=== PATIENT | female | born 1955 | race Caucasian/White ===

== ENCOUNTER 2017-09-21 13:20 | Outpatient (CLI) | payer OTHER ==
[~2017-09-21 13:20] MED LIST: KETO10TA2 PO; LISINOPRIL HCTZ; ORPH100T PO; SERTRALINE HCL50 MG
== END 2017-09-21 14:20 | disposition home or self-care (01) ==
LOC: MAMO-SONO 13:20
DX: N60.19 Diffuse cystic mastopathy of unspecified breast (principal); Z12.31 Encounter for screening mammogram for malignant neoplasm of breast

== ENCOUNTER 2018-01-17 08:21 | Outpatient (CLI) | payer OTHER | END 2018-01-17 08:34 | disposition home or self-care (01) | LOC: SONOGRAMA 08:21 | DX: R10.10 Upper abdominal pain, unspecified (principal) ==

== ENCOUNTER 2020-08-20 15:11 | Outpatient (CLI) | payer OTHER | END 2020-08-20 15:12 | disposition home or self-care (01) | LOC: PPH VACUNA 15:11 | DX: Z23 Encounter for immunization (principal) ==

== ENCOUNTER 2021-08-24 08:00 | Outpatient (CLI) | payer OTHER | END 2021-08-24 08:30 | disposition home or self-care (01) | LOC: PPH VACUNA 08:00 | PROVIDERS: ATTEND Emergency Medicine Pediatric Emergency Medicine | DX: Z23 Encounter for immunization (principal) ==